=== PATIENT | male | born 1930 | race Caucasian/White ===

== ENCOUNTER 2018-08-15 14:34 | Inpatient (IN) | payer MEDICARE, MEDICAID ==
[~2018-08-15] VITALS: Ht 172.7 cm; Wt 86.6 kg
[~2018-08-15 14:34] MED LIST: AMLO5TAB88 PO; AMPI250V3 PO; CLOP75TA15 PO; METF-416 PO; RAMI10CA19 PO; ROSU10TA25 PO; TAMS0.4C31 PO
[2018-08-15] MEDS ORDERED: ACETAMINOPHEN 325MG TABLET PO STA (15:25)
[2018-08-15] MEDS ORDERED: SODIUM CHLORIDE 0.9% 1000ML BAG (SEPSIS BOLUS) IV ONE (15:30)
[2018-08-15 15:55] LABS: BASOPHILS % 0.5 % (0.0-2.0); EOSINOPHILS % 1.7 % (0.0-5.0); HEMATOCRIT. 41.4 % (42.0-52.0); HEMOGLOBIN. 13.8 g/dL (14.0-18.0); LYMPHOCYTES % 18.1 % (20.0-50.0); MEAN CORPUSCULAR VOLUME 87.3 fL (80.0-94.0); MEAN PLATELET VOLUME 8.2 fl (7.4-10.4); MONOCYTES % 0.6 % (2.0-8.0); NEUTROPHILS % 79.1 % (40.0-76.0); PLATELET 205 x1000/uL (130-400); RED BLOOD CELL COUNT 4.75 mill/uL (4.7-6.1); RED CELL DISTRIBUTION WIDTH 13.6 % (11.6-14.6)
[2018-08-15 16:00] LABS: CHLORIDE 105 mEq/L (98-107)
[2018-08-15] MEDS ORDERED: ONDANSETRON HCL 4MG/2ML INJ IV ONE (16:00)
[2018-08-15 16:08] LABS: INR 1.1
[2018-08-15 16:28] LABS: CLARITY URINE TURBID (CLEAR); KETONES URINE 1+ (NEGATIVE); LEUKOCYTE ESTERASE URINE 3+ (NEGATIVE); NITRITE URINE POSITIVE (NEGATIVE); OCCULT BLOOD URINE 3+ (NEGATIVE); PH URINE 7.5 (4.5-8.0); PROTEIN URINE 2+ (NEGATIVE); SPECIFIC GRAVITY URINE 1.011 (1.005-1.030)
[2018-08-15] MEDS ORDERED: PIPERACILLIN/TAZ 3.375G PREMIX 50 ML IV ONE (16:30)
[2018-08-15] MEDS ORDERED: VANCOMYCIN 1 G PREMIX 200 ML IV ONE (16:30)
[2018-08-15 16:39] LABS: COLOR URINE BROWN (YELLOW)
[2018-08-15] MEDS ORDERED: SODIUM CHLORIDE 0.9% 1,000 ML IV SCH (16:54)
[2018-08-15] MEDS: BLOOD SUGAR DIAGNOSTIC STRIP TEST SCH ×2 (17:00→21:00)
[2018-08-15] MEDS ORDERED: DEXTROSE 50% WATER 50ML SYRINGE IV PRN (17:00)
[2018-08-15] MEDS ORDERED: DOCUSATE SODIUM 100MG CAPSULE PO PRN (17:00)
[2018-08-15] MEDS ORDERED: ASPIRIN 81MG TABLET PO ONE (17:00)
[2018-08-15] MEDS ORDERED: IPRATROPIUM/ALBUTEROL 0.5-3(2.5)MG/3ML NEB INH PRN (17:00)
[2018-08-15] MEDS ORDERED: ACETAMINOPHEN 325MG TABLET PO PRN (17:00)
[2018-08-15] MEDS ORDERED: NITROGLYCERIN 0.4MG TABLET SL SL PRN (17:00)
[2018-08-15] MEDS ORDERED: LEVOFLOXACIN 500MG PREMIX 100 ML IV SCH (17:00)
[2018-08-15] MEDS ORDERED: GUAIFENESIN 200MG/10ML SUGAR FREE UDC PO PRN (17:00)
[2018-08-15] MEDS ORDERED: ONDANSETRON HCL 4MG/2ML INJ IV PRN (17:00)
[2018-08-15] MEDS ORDERED: INSULIN LISPRO 100 UNITS/ML SUBCUT SCH (18:20)
[2018-08-15] MEDS: LEVOFLOXACIN 500MG PREMIX 100 ML IV NR ×2 (18:27→18:30)
[2018-08-16] VITALS (7 sets, daily range): BP systolic 98–127; BP diastolic 55–63
[2018-08-16] MEDS ORDERED: ALBUMIN HUMAN 25GM/100ML (25%) IV SCH (03:00)
[2018-08-16] MEDS ORDERED: TRAM50TA3 PO (03:11)
[2018-08-16] MEDS: CEFTRIAXONE 1 G PREMIX 50 ML IV SCH (04:59)
[2018-08-16] MEDS: SODIUM CHLORIDE 0.9% 1,000 ML IV SCH ×3 (05:05→18:32)
[2018-08-16] MEDS: BLOOD SUGAR DIAGNOSTIC STRIP TEST SCH ×4 (06:18→21:31)
[2018-08-16] MEDS: INSULIN LISPRO 100 UNITS/ML SUBCUT SCH ×4 (08:10→21:32)
[2018-08-16] MEDS ORDERED: ENOXAPARIN 40MG/0.4ML SYR SUBCUT SCH (09:00)
[2018-08-16] MEDS: METOPROLOL TARTRATE 25MG TABLET PO SCH ×2 (09:00→21:30)
[2018-08-16] MEDS ORDERED: ASPIRIN 81MG EC TABLET PO SCH (09:00)
[2018-08-16] MEDS: ZINC SULFATE 220 MG ( 50 ) CAPSULE PO SCH (09:12)
[2018-08-16] MEDS: CLOPIDOGREL 75MG TABLET PO SCH (09:12)
[2018-08-16] MEDS: FAMOTIDINE 20MG TABLET PO SCH ×2 (09:12→21:29)
[2018-08-16] MEDS: ASCORBIC ACID 500 MG TABLET PO SCH ×2 (11:25→21:29)
[2018-08-16 16:22] LABS: CREATINE KINASE MB FRACTION 17.7 ng/mL (0.5-3.6)
[2018-08-16] MEDS: MORPHINE SULFATE 4 MG/ML CPJ (NOT FOR IM USE) IV PRN (16:57)
[2018-08-16] MEDS: LEVOFLOXACIN 500MG PREMIX 100 ML IV SCH (17:28)
[2018-08-16] MEDS ORDERED: NON FORMULARY PATIENT HOME MED XX SCH (20:00)
[2018-08-16] MEDS: ENOXAPARIN 100MG/ML SYR SUBCUT SCH (21:31)
[2018-08-16] MEDS: ZOLPIDEM TARTRATE 5MG TABLET PO PRN (21:43)
[2018-08-17] VITALS (8 sets, daily range): BP systolic 126–176; BP diastolic 52–89
[2018-08-17] MEDS: CEFTRIAXONE 1 G PREMIX 50 ML IV SCH (03:08)
[2018-08-17] MEDS: SODIUM CHLORIDE 0.9% 1,000 ML IV SCH (03:08)
[2018-08-17] MEDS: TRAMADOL 50MG TABLET PO PRN ×3 (03:10→22:41)
[2018-08-17] MEDS: BLOOD SUGAR DIAGNOSTIC STRIP TEST SCH ×4 (06:51→20:48)
[2018-08-17] MEDS: INSULIN LISPRO 100 UNITS/ML SUBCUT SCH ×4 (07:36→20:48)
[2018-08-17] MEDS: FAMOTIDINE 20MG TABLET PO SCH ×2 (07:56→20:46)
[2018-08-17] MEDS: ASCORBIC ACID 500 MG TABLET PO SCH ×2 (07:57→20:45)
[2018-08-17] MEDS: ASPIRIN 81MG TABLET PO SCH (07:57)
[2018-08-17] MEDS: ZINC SULFATE 220 MG ( 50 ) CAPSULE PO SCH (07:57)
[2018-08-17] MEDS: METOPROLOL TARTRATE 25MG TABLET PO SCH (07:57)
[2018-08-17] MEDS: CLOPIDOGREL 75MG TABLET PO SCH (07:57)
[2018-08-17] MEDS: ENOXAPARIN 100MG/ML SYR SUBCUT SCH (07:58)
[2018-08-17] MEDS: MORPHINE SULFATE 4 MG/ML CPJ (NOT FOR IM USE) IV PRN (07:59)
[2018-08-17] MEDS ORDERED: VANCOMYCIN 1500MG in DEXTROSE 5% WATER 250ML IV SCH (13:00)
[2018-08-17] MEDS: LEVOFLOXACIN 500MG PREMIX 100 ML IV SCH (17:27)
[2018-08-17] MEDS: ATORVASTATIN CALCIUM 20MG TABLET PO SCH (20:45)
[2018-08-17] MEDS: METOPROLOL TARTRATE 50MG TABLET PO SCH (20:46)
[2018-08-18] MEDS: CLONIDINE 0.1MG TABLET PO PRN (01:21)
[2018-08-18] MEDS: MORPHINE SULFATE 4 MG/ML CPJ (NOT FOR IM USE) IV PRN ×3 (01:22→20:26)
[2018-08-18 04:00] VITALS: BP 149/78
[2018-08-18] MEDS: CEFTRIAXONE 1 G PREMIX 50 ML IV SCH (04:27)
[2018-08-18] MEDS: VANCOMYCIN 1250MG in DEXTROSE 5% WATER 250ML IV SCH (05:21)
[2018-08-18] MEDS: INSULIN LISPRO 100 UNITS/ML SUBCUT SCH ×4 (07:43→21:00)
[2018-08-18] MEDS: BLOOD SUGAR DIAGNOSTIC STRIP TEST SCH ×4 (07:43→21:00)
[2018-08-18 08:05] VITALS: BP 184/94
[2018-08-18] MEDS ORDERED: ENOXAPARIN 100MG/ML SYR SUBCUT SCH (09:00)
[2018-08-18] MEDS: CLOPIDOGREL 75MG TABLET PO SCH (09:17)
[2018-08-18] MEDS: ZINC SULFATE 220 MG ( 50 ) CAPSULE PO SCH (09:17)
[2018-08-18] MEDS: ASPIRIN 81MG TABLET PO SCH (09:17)
[2018-08-18] MEDS: FAMOTIDINE 20MG TABLET PO SCH ×2 (09:17→22:57)
[2018-08-18] MEDS: ASCORBIC ACID 500 MG TABLET PO SCH ×2 (09:17→22:58)
[2018-08-18] MEDS: METOPROLOL TARTRATE 50MG TABLET PO SCH ×2 (09:17→22:58)
[2018-08-18] MEDS: ENOXAPARIN 40MG/0.4ML SYR SUBCUT SCH (10:52)
[2018-08-18] MEDS: AMLODIPINE 5MG TABLET PO SCH ×2 (10:53→22:58)
[2018-08-18 12:14] VITALS: BP 128/52
[2018-08-18 13:54] LABS: CHLORIDE 110 mEq/L (98-107)
[2018-08-18 15:52] VITALS: BP 136/72
[2018-08-18] MEDS: LEVOFLOXACIN 500MG PREMIX 100 ML IV SCH (17:01)
[2018-08-18] MEDS: ATORVASTATIN CALCIUM 20MG TABLET PO SCH (23:01)
[2018-08-19] VITALS (7 sets, daily range): BP systolic 135–167; BP diastolic 48–73
[2018-08-19] MEDS: ZOLPIDEM TARTRATE 5MG TABLET PO PRN (01:21)
[2018-08-19] MEDS: VANCOMYCIN 1250MG in DEXTROSE 5% WATER 250ML IV SCH ×2 (01:22→20:01)
[2018-08-19] MEDS: CEFTRIAXONE 1 G PREMIX 50 ML IV SCH (04:28)
[2018-08-19] MEDS: METOPROLOL TARTRATE 50MG TABLET PO SCH ×2 (08:09→20:09)
[2018-08-19] MEDS: AMLODIPINE 5MG TABLET PO SCH ×2 (08:09→20:10)
[2018-08-19] MEDS: CLOPIDOGREL 75MG TABLET PO SCH (08:09)
[2018-08-19] MEDS: INSULIN LISPRO 100 UNITS/ML SUBCUT SCH ×4 (08:10→20:15)
[2018-08-19] MEDS: ASCORBIC ACID 500 MG TABLET PO SCH ×2 (08:10→20:09)
[2018-08-19] MEDS: ZINC SULFATE 220 MG ( 50 ) CAPSULE PO SCH (08:10)
[2018-08-19] MEDS: FAMOTIDINE 20MG TABLET PO SCH ×2 (08:10→20:09)
[2018-08-19] MEDS: ENOXAPARIN 40MG/0.4ML SYR SUBCUT SCH (08:10)
[2018-08-19] MEDS: BLOOD SUGAR DIAGNOSTIC STRIP TEST SCH ×4 (08:10→20:15)
[2018-08-19] MEDS: ASPIRIN 81MG TABLET PO SCH (08:12)
[2018-08-19 12:41] LABS: BASOPHILS % 0.6 % (0.0-2.0); HEMATOCRIT. 34.3 % (42.0-52.0); HEMOGLOBIN. 11.5 g/dL (14.0-18.0); LYMPHOCYTES % 17.2 % (20.0-50.0); MEAN CORPUSCULAR VOLUME 86.3 fL (80.0-94.0); MEAN PLATELET VOLUME 8.7 fl (7.4-10.4); MONOCYTES % 6.6 % (2.0-8.0); NEUTROPHILS % 71.6 % (40.0-76.0); PLATELET 161 x1000/uL (130-400); RED BLOOD CELL COUNT 3.97 mill/uL (4.7-6.1); RED CELL DISTRIBUTION WIDTH 13.4 % (11.6-14.6)
[2018-08-19 12:53] LABS: CHLORIDE 111 mEq/L (98-107)
[2018-08-19] MEDS: LEVOFLOXACIN 500MG TABLET PO SCH (17:42)
[2018-08-19] MEDS: ATORVASTATIN CALCIUM 20MG TABLET PO SCH (20:09)
[2018-08-19] MEDS: MORPHINE SULFATE 4 MG/ML CPJ (NOT FOR IM USE) IV PRN (22:48)
[2018-08-20] VITALS (7 sets, daily range): BP systolic 121–162; BP diastolic 53–69
[2018-08-20] MEDS: CEFTRIAXONE 1 G PREMIX 50 ML IV SCH (04:28)
[2018-08-20] MEDS: BLOOD SUGAR DIAGNOSTIC STRIP TEST SCH ×2 (06:11→12:20)
[2018-08-20] MEDS: INSULIN LISPRO 100 UNITS/ML SUBCUT SCH ×2 (08:34→12:23)
[2018-08-20 09:44] LABS: BASOPHILS % 0.9 % (0.0-2.0); EOSINOPHILS % 4.1 % (0.0-5.0); HEMATOCRIT. 35.2 % (42.0-52.0); HEMOGLOBIN. 11.9 g/dL (14.0-18.0); LYMPHOCYTES % 21.5 % (20.0-50.0); MEAN CORPUSCULAR HEMOGLOBIN 28.9 pg (28.0-32.0); MEAN CORPUSCULAR VOLUME 85.4 fL (80.0-94.0); MEAN PLATELET VOLUME 8.6 fl (7.4-10.4); MONOCYTES % 9.2 % (2.0-8.0); NEUTROPHILS % 64.3 % (40.0-76.0); PLATELET 180 x1000/uL (130-400); RED BLOOD CELL COUNT 4.11 mill/uL (4.7-6.1); RED CELL DISTRIBUTION WIDTH 13.3 % (11.6-14.6)
[2018-08-20] MEDS: ENOXAPARIN 40MG/0.4ML SYR SUBCUT SCH (09:52)
[2018-08-20] MEDS: AMLODIPINE 5MG TABLET PO SCH (09:53)
[2018-08-20] MEDS: ASCORBIC ACID 500 MG TABLET PO SCH (09:53)
[2018-08-20] MEDS: FAMOTIDINE 20MG TABLET PO SCH (09:53)
[2018-08-20] MEDS: ASPIRIN 81MG TABLET PO SCH (09:53)
[2018-08-20] MEDS: ZINC SULFATE 220 MG ( 50 ) CAPSULE PO SCH (09:53)
[2018-08-20] MEDS: CLOPIDOGREL 75MG TABLET PO SCH (09:54)
[2018-08-20] MEDS: METOPROLOL TARTRATE 50MG TABLET PO SCH (09:54)
[2018-08-20 10:05] LABS: CHLORIDE 109 mEq/L (98-107)
[2018-08-20] MEDS: MORPHINE SULFATE 4 MG/ML CPJ (NOT FOR IM USE) IV PRN (11:18)
[2018-08-20] MEDS ORDERED: VANCOMYCIN 1 G PREMIX 200 ML IV SCH (13:00)
[2018-08-20] MEDS ORDERED: ATOR20TA PO (13:28)
[2018-08-20] MEDS ORDERED: LEVO500T2 MT (13:29)
[2018-08-20] MEDS ORDERED: NITR-87 MT (13:29)
[2018-08-20] MEDS: CLONIDINE 0.1MG TABLET PO PRN (14:18)
[2018-08-20] MEDS: LEVOFLOXACIN 500MG TABLET PO SCH (15:57)
[2018-08-20] MEDS: TRAMADOL 50MG TABLET PO PRN (16:07)
== END 2018-08-20 17:16 | disposition home health service (06) | DRG 871 ==
LOC: ER 14:34 → 7WST 16:50 → SUPCPDRO 16:51 → EDBEDREQ 16:53 → EDBEDREQSVC 16:53 → ENRESERV 20:54
PROVIDERS: ADMIT Internal Medicine; ATTEND Internal Medicine
DX: A41.9 Sepsis, unspecified organism (principal); I21.4 Non-ST elevation (NSTEMI) myocardial infarction; E44.1 Mild protein-calorie malnutrition; N39.0 Urinary tract infection, site not specified; D64.9 Anemia, unspecified; E78.00 Pure hypercholesterolemia, unspecified; R65.20 Severe sepsis without septic shock; I25.10 Atherosclerotic heart disease of native coronary artery without angina pectoris; E11.9 Type 2 diabetes mellitus without complications; E78.5 Hyperlipidemia, unspecified; Z95.0 Presence of cardiac pacemaker; Z68.29 Body mass index [BMI] 29.0-29.9, adult; Z89.511 Acquired absence of right leg below knee; Z89.619 Acquired absence of unspecified leg above knee; Z79.2 Long term (current) use of antibiotics; Z79.84 Long term (current) use of oral hypoglycemic drugs; Z79.899 Other long term (current) drug therapy
CPT/HCPCS: 36415; 71045; 80048; 80061; 80202; 82550; 82553; 82565; 82962; 83036; 83605; 83735; 84484; 84520; 87077; 87186; 87804; 93005; 93306; 93970; 97162; 97166; 99291; A6261; J0696; J1650; J1815; J1956; J2270; J2405; J2543; J3370; J7030; J7060; P9047